=== PATIENT | male | born 1990 | race Two or more races ===

== ENCOUNTER 2020-04-20 16:20 | Emergency (ER) | payer MEDICAID, OTHER ==
[~2020-04-20] VITALS: Ht 177.8 cm; Wt 86.2 kg
[2020-04-20 17:25] LABS: Urine Bacteria NONE SEEN /hpf (None Seen); Urine Blood Negative /uL (Negative); Urine Mucus FEW (None Seen); Urine Specific Gravity 1.018 (1.001-1.035); Urine WBC <1 /hpf (0 - 3)
[2020-04-20 17:59] VITALS: BP 120/87
== END 2020-04-20 18:06 | disposition home or self-care (01) ==
LOC: ER 16:20
DX: N50.812 Left testicular pain (principal); N50.3 Cyst of epididymis
CPT/HCPCS: 76870; 81001

== ENCOUNTER 2022-11-03 07:04 | Emergency (ER) | payer SELFPAY ==
[~2022-11-03] VITALS: Ht 177.8 cm; Wt 100.0 kg
[2022-11-03 10:30] VITALS: BP 124/63
[2022-11-03] MEDS ORDERED: IBUPROFEN 600 MG TAB PO ONE (11:00)
== END 2022-11-03 12:07 | disposition home or self-care (01) ==
LOC: ER 07:04
DX: S39.012A Strain of muscle, fascia and tendon of lower back, initial encounter (principal); X58.XXXA Exposure to other specified factors, initial encounter; Y93.89 Activity, other specified; Y92.89 Other specified places as the place of occurrence of the external cause; Y99.8 Other external cause status
CPT/HCPCS: 72100

== ENCOUNTER 2023-04-15 07:09 | Inpatient (IN) | payer OTHER ==
[~2023-04-15] VITALS: Ht 175.3 cm; Wt 92.2 kg
[2023-04-15 07:14] VITALS: BP 127/81
[2023-04-15 07:33] LABS: Basophils # (auto) 0 10 ^3/uL (0-0.2); Basophils % (auto) 0.7 % (0.0-2.0); Eosinophils # (auto) 0.2 10 ^3/uL (0-0.8); Eosinophils % (auto) 4.1 % (0.0-7.0); Hematocrit 44.6 % (41.0-53.0); Hemoglobin 15.2 g/dL (13.5-17.5); Lymphocytes % (auto) 36.3 % (10.0-50.0); Mean Corpuscular Hemoglobin 29.4 pg (28.0-32.0); Mean Corpuscular Volume 86.5 fL (80.0-100.0); Monocytes # (auto) 0.4 10 ^3/uL (0-1.3); Monocytes % (auto) 7.5 % (0.0-12.0); Neutrophils # (auto) 2.9 10 ^3/uL (1.6-8.6); Neutrophils % (auto) 51.4 % (37.0-80.0); Nucleated Red Blood Cells % 0.1 %; Red Blood Cells 5.15 10^6/uL (4.5-5.90); Red Cell Distribution Width 13.8 % (11.8-14.3); White Blood Cell 5.6 10^3/uL (4.4-10.8)
[2023-04-15 08:00] LABS: Potassium 4.1 mmol/L (3.5-5.1)
[2023-04-15 08:48] LABS: Albumin 4.2 g/dL (3.4-5.0); BUN/Creatinine Ratio 15.5 (10.0-20.0); Bilirubin, Total 0.8 mg/dL (0.2-1.0); Calcium 9.3 mg/dL (8.5-10.1); Total Protein 7.5 g/dL (6.4-8.2)
[2023-04-15] MEDS ORDERED: HYDROcodone-ACET 5/325MG TAB PO PRN (12:00)
[2023-04-15] MEDS ORDERED: ENOXAPARIN SOD 40 MG/0.4 ML SYRINGE SC SCH (12:00)
[2023-04-15] MEDS ORDERED: ACETAMINOPHEN 325 MG TAB PO PRN (12:00)
[2023-04-15] MEDS ORDERED: ASPirin 325 MG TAB PO ONE (12:00)
[2023-04-15] MEDS ORDERED: NITROGLYCERIN 0.4 MG SL TAB SL PRN (12:00)
[2023-04-15] MEDS ORDERED: MORPHINE SULFATE INJ 2 MG/ml SYRG IV PRN ×2 (12:00)
[2023-04-15 13:54] LABS: Alcohol, Urine < 3.0 mg/dL (0-10); Barbiturate Scree,Urine NEGATIVE (NEGATIVE); Opiate Scree,Urine NEGATIVE (NEGATIVE)
[2023-04-15 13:56] LABS: Cholesterol 138 mg/dL (< 200); HDL Cholesterol 36 mg/dL (40-59); LDL Cholesterol 102 mg/dL (< 100); Triglycerides 110 mg/dL (< 150)
[2023-04-15 14:01] LABS: Amphetamine Screen, Urine NEGATIVE (NEGATIVE); Benzodiazephine Screen, Urine NEGATIVE (NEGATIVE); Cannabinoid Screen, Urine POSITIVE (NEGATIVE); Cocaine Screen, Urine NEGATIVE (NEGATIVE); Phencyclidine Screen, Urine NEGATIVE (NEGATIVE)
[2023-04-15] MEDS ORDERED: ATORVASTATIN 20 MG TAB PO SCH (22:00)
[2023-04-16] MEDS ORDERED: ASPirin 81 mg TAB PO SCH (10:00)
== END 2023-04-16 17:30 | disposition left against medical advice (07) | DRG 198 ==
LOC: ER 07:09 → TELE 12:08
PROVIDERS: ADMIT Registered Nurse; ATTEND Internal Medicine
DX: I20.0 Unstable angina (principal); E66.9 Obesity, unspecified; Z53.29 Procedure and treatment not carried out because of patient's decision for other reasons; F12.90 Cannabis use, unspecified, uncomplicated; Z68.30 Body mass index [BMI] 30.0-30.9, adult
CPT/HCPCS: 36415; 71045; 80053; 80061; 80307; 83036; 84443; 84484; 85025; 85379; 93005; G0378